=== PATIENT | female | born 1990 | race Two or more races ===

== ENCOUNTER 2022-09-20 21:18 | Emergency (ER) | payer OTHER ==
[~2022-09-20] VITALS: Ht 170.2 cm; Wt 97.5 kg
--- NOTE | 2022-09-20 21:32 | NUR ---
TO ER BED 16. [id number] C/O ABD PAIN X30 MIN. MENSTRUATING. HX OVARIAN CYST. PT IS ALERT AND ORIENTED. RR EVEN AND NON LABORED. CONNECTED TO MONITOR. MOTHER AT BEDSIDE. WILL CONT TO MONITOR
[2022-09-20] MEDS ORDERED: IV NS 0.9% 1,000 ML BAG IV ONE (22:00)
[2022-09-20] MEDS ORDERED: KETOROLAC TROMETHAMINE INJ 30 MG/ML VIAL IV ONE (22:00)
[2022-09-20] MEDS ORDERED: ONDANSETRON HCL/PF 4 MG/2 ML VIAL IVP ONE (22:00)
[2022-09-20 22:31] LABS: BASOPHILS % (AUTO) 0.3 % (0.0-2.0); EOSINOPHILS % (AUTO) 0.8 % (0.0-6.0); HEMATOCRIT 38 % (33-45); HEMOGLOBIN 12.8 g/dL (11.5-14.8); LYMPHOCYTES # (AUTO) 2.2 K/uL (0.8-4.8); LYMPHOCYTES % (AUTO) 15.3 % (20.0-44.0); MEAN CORPUSCULAR HGB CONC 33 g/dl (31.0-36.0); MEAN CORPUSCULAR VOLUME 91 fL (82-100); MONOCYTES # (AUTO) 0.8 K/uL (0.1-1.30); MONOCYTES % (AUTO) 5.6 % (2.0-12.0); NEUTROPHILS # (AUTO) 11.1 K/uL (1.8-8.9); PLATELET COUNT (AUTO) 329 K/uL (150-450); RED BLOOD CELL COUNT(AUTO) 4.23 MIL/uL (4.0-5.2); WHITE BLOOD COUNT (AUTO) 14.3 K/uL (4.3-11.0)
[2022-09-20] MEDS ORDERED: ONDANSETRON HCL/PF 4 MG/2 ML VIAL ONE (22:35)
[2022-09-20] MEDS ORDERED: KETOROLAC TROMETHAMINE INJ 30 MG/ML VIAL ONE (22:35)
--- NOTE | 2022-09-20 22:48 | NUR ---
IV LINE ESTABLISHED, 20G
--- NOTE | 2022-09-20 22:51 | NUR ---
WEIVER OBTAINED SIGNED BY PT
[2022-09-20 22:53] LABS: ALBUMIN 3.6 g/dL (3.4-5.0); BILIRUBIN,DIRECT 0.1 mg/dL (0.0-0.2); BILIRUBIN,TOTAL 0.2 mg/dL (0.2-1.0); CREATININE 0.9 mg/dL (0.6-1.3); POTASSIUM 3.2 mmol/L (3.5-5.1); TOTAL PROTEIN, SERUM 6.9 g/dL (6.4-8.2)
[2022-09-20] MEDS ORDERED: IOHEXOL-300 100 ML VIAL IV ONE (22:53)
[2022-09-20] MEDS ORDERED: CT SWABBABLE VALVE TRANS SET 1 EA INFUS.SET MC ONE (22:53)
[2022-09-20] MEDS ORDERED: IV NS 0.9% 250 ML IV ONE (22:53)
--- NOTE | 2022-09-20 23:17 | NUR ---
PT TAKEN TO CT VIA ALEKSANDAR
--- NOTE | 2022-09-21 00:31 | NUR ---
Patient discharged to home in stable condition. RX Written and verbal after care instructions given. Patient verbalizes understanding of instruction. PT ambulatory with a steady gait
[2022-09-21] MEDS ORDERED: ONDA4TAB5 PO (00:33)
[2022-09-21] MEDS ORDERED: IBUP-1957 PO (00:33)
[2022-09-21 00:36] VITALS: BP 121/81
== END 2022-09-21 00:37 | disposition home or self-care (01) ==
LOC: ER 21:19
DX: R10.31 Right lower quadrant pain (principal); R11.0 Nausea; J45.909 Unspecified asthma, uncomplicated; Z88.8 Allergy status to other drugs, medicaments and biological substances
CPT/HCPCS: 99285; 74177; 96374; 96361; 96375; 85025; 80048; 83690; 80076; 36415; 84702; J1885; J2405; J7030; J7050; Q9967